=== PATIENT | male | born 1960 | race Caucasian/White ===

== ENCOUNTER → 2023-06-18 10:28 | Outpatient (CLI) | payer MEDICARE, SELFPAY ==
[2023-06-18 12:41] LABS: BUN Creatinine Ratio 11.8 (6-22); Blood Urea Nitrogen 10 mg/dL (9-20); Calcium 9.5 mg/dL (8.4-10.2); Carbon Dioxide 27 mmol/L (22-32); Chloride 102 mmol/L (98-107); Estimated Glomerular Filt Rate > 60 mL/min (>60); Glucose 94 mg/dL (80-110); HEMOLYSIS < 15 (0-50); Potassium 4.6 mmol/L (3.4-5.1); Sodium 138 mmol/L (137-145)
[2023-06-18 12:49] LABS: Add Manual Diff / Slide Review NO; Basophils Absolute Auto 100 /uL (0-100); Basophils Percent Auto 0.8 % (0-2); Eosinophils Absolute Auto 100 /uL (0-450); Eosinophils Percent Auto 1.2 % (2-4); Hematocrit 42.8 % (41-53); Hemoglobin 14.8 g/dL (13.5-17.5); Lymphocytes Absolute Auto 3500 /uL (1100-4500); Lymphocytes Percent Auto 41.9 % (25-40); Mean Corpuscular HGB Conc 34.6 % (30-36); Mean Corpuscular Hemoglobin 33.3 PG (26-34); Mean Corpuscular Volume 96.1 fL (80-100); Monocytes Absolute Auto 500 /uL (0-900); Monocytes Percent Auto 6.1 % (3-14); Neutrophils Absolute Auto 4200 /uL (1500-7000); Platelet Count 443 X10^3/uL (150-400); Red Blood Cell Count 4.45 X10^6/uL (4.5-5.9); Red Cell Distribution Width 14.2 % (11.6-14.8); White Blood Cell Count 8.3 X10^3/uL (4.5-11.0)
[2023-06-18 13:33] LABS: Appearance Urine UA CLEAR; Bilirubin Urine UA NEGATIVE (NEGATIVE); Color Urine UA YELLOW; Glucose Urine UA NEGATIVE (Negative); Ketones Urine UA NEGATIVE (NEGATIVE); Leukocyte Esterase Urine UA NEGATIVE (NEGATIVE); Nitrite Urine UA NEGATIVE (Negative); Occult Blood Urine UA NEGATIVE (Negative); Protein Urine UA NEGATIVE (Negative); Urobilinogen Urine UA 0.2 E.U./dL (0.2); pH Urine UA 5.5 (4.5-8.0)
[2023-06-18 13:38] LABS: Bacteria Urine None Seen; Culture Indicated Urine Cult Not Indicated; RBC Urine None Seen (0-5/HPF); Squamous Epithelial Cell Urine None Seen (0-5/HPF); Urine Volume 10mL (spun); WBC Urine None Seen (0-5/HPF)
== END ==
LOC: RESP 10:33
PROVIDERS: Referring Provider Orthopaedic Surgery; Visit Provider Orthopaedic Surgery
DX: Z01.818 Encounter for other preprocedural examination (principal); Z01.812 Encounter for preprocedural laboratory examination; N39.0 Urinary tract infection, site not specified
CPT/HCPCS: 36415; 80048; 81001; 85025; 93005; 93010

== ENCOUNTER 2023-08-26 10:08 | Inpatient (IN) | payer MEDICARE, SELFPAY ==
[2023-08-16 08:45] VITALS: BMI 21.2
[2023-08-26] VITALS (13 sets, daily range): BP systolic 100–127; BP diastolic 70–84; PULSE 71–94; RESP 13–20; TEMP 36.2–37.2; O2SAT 94–98; BMI 19.4
--- NOTE | 2023-08-26 07:36 | DI.RAD.S_ITS ---
PROCEDURE: XR SHOULDER RT 1V INDICATIONS: post-op TECHNIQUE: 1 views of the shoulder were acquired. COMPARISON: [facility], [place], CT SHOULDER RIGHT WITHOUT CONTRAST, 06/25/2023, 16:11. [facility], CR, XR SHOULDER 2+ VIEWS RIGHT, 06/16/2023, 9:23. FINDINGS: Postoperative changes demonstrating right shoulder arthroplasty. Hardware is intact without hardware fracture. Alignment is anatomic. Visualized portions of the right lung are within normal limits. IMPRESSION: Postoperative changes demonstrating right shoulder arthroplasty. Dictated by: Lulu Andrade M.D. on 08/26/2023 at 16:37 Approved by: Lulu Andrade M.D. on 08/26/2023 at 16:38
[2023-08-26] MEDS: LACTATED RINGERS 1,000 ML 42 ML IV (11:21)
[2023-08-26] MEDS: ACETAMINOPHEN 325 MG TABLET 975 MG PO (11:26)
--- NOTE | 2023-08-26 13:10 | PM.HP.1 ---
History of Present Illness History of Present Illness Date Patient Seen: 08/26/23 Time Patient Seen: 13:10 Chief complaint: Right TSA revision Narrative: This is a very pleasant 63-year-old male here for revision of his right anatomic hemiarthroplasty. Plan is to revise to reverse. He has not had any changes in his symptoms. No recent nausea, vomiting, diarrhea, fevers, chills or any other constitutional symptoms. No other complaints at this time. [facility] Medical History Anxiety Depression HLD (hyperlipidemia) Surgical History Hx of foot surgery History of total left hip replacement History of total right hip replacement History of carpal tunnel surgery of left wrist History of carpal tunnel surgery of right wrist Hx of repair of right rotator cuff S/P left rotator cuff repair Hx of tonsillectomy History of transurethral resection of prostate (2020) Social History household members: spouse Smoking Status: Former smoker alcohol intake: former Meds Home Medications and Allergies Home Medications Medication Instructions Recorded Confirmed Type acetaminophen 500 mg tablet 1,000 mg PO TID 08/16/23 08/26/23 History atorvastatin 20 mg tablet 20 mg PO BEDTIME 08/16/23 08/26/23 History sertraline 150 mg capsule 150 mg PO BEDTIME 08/16/23 08/26/23 History tamsulosin 0.4 mg capsule 0.4 mg PO BEDTIME 08/16/23 08/26/23 History alprazolam 0.25 mg tablet 0.25 mg PO DAILY 08/26/23 08/26/23 History Allergies Allergy/AdvReac Type Severity Reaction Status Date / Time Penicillins Allergy Mild Rash Verified 08/26/23 11:06 Review of Systems Review of Systems ROS: Yes All systems reviewed with the patient and are negative except as otherwise documented Exam Vital Signs (past 8 hours): - 08/26/23 11:14 Temperature 98.9 F Pulse Rate 76 Respiratory Rate 20 Blood Pressure 124/82 Pulse Oximetry 95 Oxygen Delivery Method Room Air Oxygen Delivery Method Room Air Narrative Exam Narrative: HEENT: Head atraumatic eyes anicteric moist mucous membranes Cardiovascular: Palpable peripheral pulses extremities are warm and well perfused Respiratory: Breathing comfortably on room air Psychiatric: Appropriate mood and affect Neuro: No acute deficits Musculoskeletal: Exam of the right upper extremity demonstrates well-healed previous surgical incision over the deltopectoral interval. Sensation intact to light touch in median, radial, ulnar, axillary nerve distributions able to give thumbs up, cross fingers, make A-OK sign. 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 Risks and benefits of surgery were discussed again including the risk of infection, damage to internal structures, bleeding, nerve injury, instability, need for revision surgery, blood clots, anesthesia and . No guarantees were made regarding outcomes. Patient expressed understanding and accepted these risks and wished to go forward with surgery and consent was signed.
--- NOTE | 2023-08-26 13:15 | SUR.PREOP ---
Block start time [1300] . Time out at 1301 Monitoring initiated and maintained throughout procedure. Oxygen and medications given per anesthesiologist instructions. Patient remained stable throughout procedure, no adverse reactions noted. Block end time [1312].
[2023-08-26] MEDS: CEFAZOLIN 2 GM/100 ML PREMIX 100 ML IV (13:45)
--- NOTE | 2023-08-26 14:10 | SUR.OPER ---
Beach chair on padded OR bed. Head on gel donut secured with tape over gauze. Non-operative arm secured <90 degrees abduction on padded arm board. Pillow under knees. Safety belt at thigh.
[2023-08-26] MEDS: EPINEPHrine 1 MG/ML 0.15 MG INJ (14:19)
[2023-08-26] MEDS: BUPIVACAINE 0.25% (PF) VIAL 30 ML INJ (14:19)
--- NOTE | 2023-08-26 15:15 | P.OP_ITS ---
Operative Date/Time/Diagnoses Date of procedure: 08/26/23 Time of procedure: 15:15 Pre-op diagnosis: Failed right shoulder hemiarthroplasty Post-op diagnosis: same Procedure & Clinicians Procedure: Revision right shoulder hemiarthroplasty to a reverse total shoulder arthroplasty Same procedure as scheduled: Yes Indications: Indications: This is a 63-year-old male with failed hemiarthroplasty of his right shoulder. Risks and benefits were described including the risk of infection, bleeding, damage to internal structures including nerves. We also discussed the risk of failure of surgery and the need for revision surgery as well as the risk of anesthesia. The patient expressed understanding with these risks and wished to go forward with surgery. 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 The correct right shoulder was identified and marked with my initials. Again we discussed the risks and benefits of surgery and they wished to go forward with surgery. The patient was brought back to the operating room and placed supine on the operating table. Smooth endotracheal intubation was performed by anesthesia. All prominences were padded and they were placed into the beach chair position. Intravenous antibiotics were given. The right shoulder was then prepped with the standard sterile preparation and draping. A time-out was then performed in my initials were again identified on the correct shoulder. 1 g of IV tranexamic acid was given. A standard deltopectoral incision was made. Skin flaps were made. The cephalic vein was identified and retracted laterally. This was protected throughout the remainder of the case. Sharp dissection was made along the deltoid, subacromial and subcoracoid space to release adhesions. The conjoined tendon was identified and the axillary nerve was palpated and continuous using the tug test. It was protected throughout the remainder of the case. A brown retractor was placed underneath the deltoid muscle and a darach retractor underneath the conjoint tendon. The subscapularis muscle was ntoed to be deficient. The biceps tendon was identified in the bicipital groove. This was released from its sheath, and taken from its origin on the glenoid and tied into the pectoralis tendon for a solid tenodesis. The coracohumeral ligament was released at the base of the coracoid. The shoulder was then dislocated. Osteophytes were removed using combination of rongeur and osteotome. The rotator cuff was noted to be intact. Using an oscillating saw, the hemiarthroplasty resurfacing was removed. The cut was freshened. A neck protector was placed. Attention was then turned to the glenoid. After retracting the humeral head posteriorly a circumferential release was performed of the capsule with protection of the axillary nerve. The labrum was then released starting at the biceps anchor and going around the rim a small amount of triceps was released from the inferior glenoid. A center guide pin was then placed using the guide, followed by Reamer. After adequate cartilage was removed the boss was reamed and the centeral hole was drilled and measured. The base plate was then implanted and screwed into place. The peripheral screws were then sequentially drilled, measured, and placed. A 39 standard glenosphere was then selected and screwed into place onto the base plate. Turning back to the humerus, the humeral head was delivered and trialed with a 0 concentric. The arm was taken through range of motion and this was felt to be stable. The trial was then removed and a dilute Betadine wash was then performed with 1 L of sterile saline. The final stem was then impacted into the humerus. The shoulder was then reduced and again brought through range of motion and was felt to be stable. The skin was closed with 2-0 vicryl and 3-0 Monocryl followed by Aquacel dressing. Patient was awoken from anesthesia and brought back to the postoperative recovery unit without issue. They were placed into a sling. Assisting participation: This operation could not have been safely performed (without compromising the technical results or length of the procedure) without the assistance of a skilled surgical technologist. The surgical technologist was medically necessary for proper positioning, retraction and manipulation of instruments, proper exposure, graft prep, and manipulation of tissue. Complications: none Post-operative Condition: stable Disposition: PACU Plan for aftercare: Postoperative instructions: Sling to remain on for 6 weeks. No external rotation past neutral for 6 weeks. Okay for the sling to come off for shower. Okay to shower over the Aquacel dressing. If any water gets underneath the dressing, remove the dressing. First postoperative visit in 2 weeks.
== END 2023-08-26 16:40 | disposition home or self-care (01) | DRG 483 ==
PROVIDERS: Admitting Provider Orthopaedic Surgery; Referring Provider Orthopaedic Surgery; Visit Provider Orthopaedic Surgery
PROC: 0RPJ0J6 Removal of Synthetic Substitute from Right Shoulder Joint, Humeral Surface, Open Approach (ICD-10-PCS; principal; 2023-08-26 12:15)
DX: T84.098A Other mechanical complication of other internal joint prosthesis, initial encounter (principal); M19.011 Primary osteoarthritis, right shoulder; Z87.891 Personal history of nicotine dependence
CPT/HCPCS: 64415; 73020; C1776; J0171; J0690; J1100; J2250; J2405; J3010